=== PATIENT | male | born 1995 | race Caucasian/White ===

== ENCOUNTER → 2016-09-19 | Outpatient (CLI) | payer BC | LOC: GMA 19:40 | PROVIDERS: ATTEND Nurse Practitioner Acute Care | DX: R30.0 Dysuria (principal) ==

== ENCOUNTER → 2017-01-19 | Outpatient (CLI) | payer BC | END | disposition home or self-care (01) | LOC: GMAL 10:51 | PROVIDERS: ATTEND Family Medicine | DX: D51.3 Other dietary vitamin B12 deficiency anemia (principal); D53.9 Nutritional anemia, unspecified; Z00.00 Encounter for general adult medical examination without abnormal findings ==

== ENCOUNTER → 2020-03-13 | Outpatient (CLI) | payer BC | LOC: GMAL 10:22 | PROVIDERS: ATTEND Family Medicine | DX: D51.3 Other dietary vitamin B12 deficiency anemia (principal); D50.0 Iron deficiency anemia secondary to blood loss (chronic) ==

== ENCOUNTER 2020-10-03 11:58 | Emergency (ER) | payer BC ==
[2020-10-03] MEDS ORDERED: ALUM & MAG HYDROX-SIMETHICONE 30 ML, LIDOCAINE VISCOUS 2% 15 ML PO ONE ×2 (12:26)
--- NOTE | 2020-10-03 12:49 | RAD ---
EXAMINATION: Chest,2 Views. HISTORY: 25 years Male. vomit bblood. . . TECHNIQUE: XR CHEST 2 VIEWS COMPARISON: 02/25/2020 FINDINGS: Cardiac silhouette size is normal without vascular congestion. There is no pulmonary consolidation. No radiographically visible pneumothorax. No definite evidence of pleural effusion. No visible acute displaced fracture in the regional skeleton. IMPRESSION: No acute cardiopulmonary disease in the visualized chest. Electronically signed by: Jermaine Hernandez MD 10/03/2020 12:48 PM [facility]
--- NOTE | 2020-10-03 13:15 | ED.PDOC ---
History of Present Illness - General Chief Complaint: ENT Problem Stated Complaint: Sore throat, vomitting blood Time Seen by Provider: 10/03/20 12:07 Source: patient Exam Limitations: no limitations - History of Present Illness Initial Comments: Patient 25-year-old male presenting with symptoms of his chronic esophagitis flaring. The patient has burning in the substernal area as well as reflux in the back of his throat. He has had multiple issues with this over the years. He has only taking Tums as needed currently. The patient was eating something this morning when he got stuck in his lower esophagus. He vomited and with the vomitus came a little bit of blood tinge. No blood in the stool. No reports of melena. No fever. The patient had been on acid reducing medications before but is not currently. He does have a history in his family of esophagitis and even a grandfather with esophageal cancer. Aside from the reflux discomfort, he is not having any pain right now. Timing/Duration: 1-3 hours Severity: moderate Improving Factors: nothing Worsening Factors: eating Associated Symptoms: malaise, nausea/vomiting Allergies/Adverse Reactions: Allergies NO KNOWN ALLERGY Allergy (Unverified 06/26/14 21:04) Home Medications: Ambulatory Orders Omeprazole 40 mg PO DAILY #20 cap 06/27/14 Albuterol Inhaler [Ventolin Hfa Inhaler] 1 puff INH PRN 05/18/16 Albuterol Sulfate Nebs [Proventil Nebs] 2.5 mg INH PRN 05/18/16 Famotidine [Pepcid Tab] 20 mg PO BID #120 tab 10/03/20 Sucralfate Tab [Carafate Tab] 1 gm PO QID #120 tab 10/03/20 Review of Systems - Review of Systems Constitutional: States: no symptoms reported EENTM: States: no symptoms reported Respiratory: States: no symptoms reported Cardiology: States: no symptoms reported Gastrointestinal/Abdominal: States: see HPI Genitourinary: States: no symptoms reported Musculoskeletal: States: no symptoms reported Skin: States: no symptoms reported Neurological: States: no symptoms reported Endocrine: States: no symptoms reported All other Systems: No Change from Baseline Past Medical History (General) - Patient Medical History Hx Dementia: No Hx Asthma: Yes Hx of COPD: No Hx Cardiac Disorders: No Hx Congestive Heart Failure: No Hx Hypertension: No Hx Thyroid Disease: No Hx Diabetes: No Hx Gastroesophageal Reflux: Yes Hx Cancer: No Hx MRSA: No Surgical History: appendectomy - Vaccination History Hx Tetanus, Diphtheria Vaccination: Yes Hx Influenza Vaccination: No Hx Pneumococcal Vaccination: No - Social History Hx Tobacco Use: No Hx Chewing Tobacco Use: Yes Hx Alcohol Use: Yes Hx Substance Use: No Hx Substance Use Treatment: No Hx Depression: No - Activities of Daily Living Hospice Agency (if applicable):: None - Female History Patient is a Female of Child Bearing Age (10 -59 yrs old): No Patient : No Family Medical History - Family History Father Family History: No Known Mother Family History: No Known Physical Exam - Physical Exam General Appearance: Alert, Comfortable, No apparent distress Eye Exam: bilateral normal Ears, Nose, Throat: hearing grossly normal, normal pharynx Neck: full range of motion, supple Respiratory: lungs clear, normal breath sounds, no respiratory distress, no accessory muscle use Cardiovascular/Chest: normal peripheral pulses, regular rate, rhythm, no edema Peripheral Pulses: radial,right: 2+, radial,left: 2+ Gastrointestinal/Abdominal: soft, other - Epigastric discomfort to palpation. Rectal Exam: deferred Back Exam: no CVA tenderness, no vertebral tenderness Extremity: normal range of motion, non-tender, normal inspection, no pedal edema, normal capillary refill Neurologic: director of medical review II-XII nml as tested, no motor/sensory deficits, alert, normal mood/affect, oriented x 3 Skin Exam: normal color - No clinical evidence of anemia. Coloration is good. He is tolerating oral intake. Comments: Vital Signs - 24 hr 10/03/20 12:00 Temperature 99 F Pulse Rate [ 97 H Pulse ox] Respiratory 16 Rate Blood Pressure 167/108 [R arm] O2 Sat by Pulse 97 Oximetry Progress - Progress Progress: 10/03/20 13:15 The patient is a 25-year-old male presenting with symptoms of acute on chronic esophagitis. The patient is going to be placed on Carafate for the next month along with Pepcid twice daily, which she will likely need to continue for 6 months. Additionally he needs to keep either liquid Maalox or Mylanta with him to help coat his esophagus when he is having an acute flare. The patient does need to get set up with a gastrointestinal doctor for an upper endoscopy given the duration of his symptoms. Chest x-ray was reassuring. Additionally, while he is having the inflammation in the lower esophagus, he needs to chew his food very well and drink plenty of liquids while he is swallowing. 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 Long-term cancer risk of this has been explained to the patient. ER warnings are given for any obvious worsening. No evidence of current active bleeding, or significant anemi [email or web address] [id number] - Results/Orders Results/Orders: Chest x-ray shows no acute pathology. Departure - Departure Clinical Impression: Esophagitis Disposition: Discharge to Home or Self Care Condition: Fair Departure Forms: ED Discharge - Pt. Copy, Patient Portal Self Enrollment Instructions: DI for Ear Pain-Adult, Acid Reflux and GERD in Adults (DC) Diet: bland diet Activity: increase activity as tolerated Referrals: Cecilio Barba III, MD [Primary Care Provider] - 1-2 Weeks Prescriptions: Sucralfate Tab [Carafate Tab] 1 gm PO QID #120 tab Famotidine [Pepcid Tab] 20 mg PO BID #120 tab Home Medications: Ambulatory Orders Omeprazole 40 mg PO DAILY #20 cap 06/27/14 Albuterol Inhaler [Ventolin Hfa Inhaler] 1 puff INH PRN 05/18/16 Albuterol Sulfate Nebs [Proventil Nebs] 2.5 mg INH PRN 05/18/16 Famotidine [Pepcid Tab] 20 mg PO BID #120 tab 10/03/20 Sucralfate Tab [Carafate Tab] 1 gm PO QID #120 tab 10/03/20 Additional Instructions: The patient is a 25-year-old male presenting with symptoms of acute on chronic esophagitis. The patient is going to be placed on Carafate for the next month along with Pepcid twice daily, which she will likely need to continue for 6 months. Additionally he needs to keep either liquid Maalox or Mylanta with him to help coat his esophagus when he is having an acute flare. The patient does need to get set up with a gastrointestinal doctor for an upper endoscopy given the duration of his symptoms. Chest x-ray was reassuring. Additionally, while he is having the inflammation in the lower esophagus, he needs to chew his food very well and drink plenty of liquids while he is swallowing. 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 Long-term cancer risk of this has been explained to the patient. ER warnings are given for any obvious worsening.
[2020-10-03 14:03] VITALS: O2SAT 96
[2020-10-03 14:17] VITALS: BP 138/88; TEMP 98.9
== END 2020-10-03 13:40 | disposition home or self-care (01) ==
LOC: ER 11:58
DX: K20.90 Esophagitis, unspecified without bleeding (principal); R11.2 Nausea with vomiting, unspecified; J45.909 Unspecified asthma, uncomplicated; K21.9 Gastro-esophageal reflux disease without esophagitis; Z80.0 Family history of malignant neoplasm of digestive organs; Z90.49 Acquired absence of other specified parts of digestive tract; Z79.899 Other long term (current) drug therapy